=== PATIENT | female | born 1955 | race Caucasian/White ===

== ENCOUNTER 2016-03-13 20:11 | Observation (INO) | payer OTHER ==
[~2016-03-13] VITALS: Ht 162.6 cm; Wt 77.0 kg
[2016-03-13 20:28] VITALS: BP 186/108; PULSE 127; RESP 20; TEMP 98.7; O2SAT 95
[2016-03-13] MEDS ORDERED: SODIUM CHLOR 0.9% 1000 ML INJ 1,000 ML IV ONE ×2 (20:30)
[2016-03-13 20:39] VITALS: BP 160/98; PULSE 127; RESP 18; O2SAT 94
[2016-03-13] MEDS ORDERED: ASPIRIN 81 MG CHEW TAB PO ONE (20:45)
[2016-03-13] MEDS ORDERED: DEXAMETHASONE SOD PHOS 20 MG/5 ML VIAL IV PUSH ONE (20:45)
[2016-03-13 20:49] LABS: BASOPHIL # 0.1 TH/MM3 (0-0.2); BASOPHIL % 0.7 % (0.0-2.0); EOSINOPHIL # 0.2 TH/MM3 (0-0.4); EOSINOPHIL % 2.8 % (0.0-4.0); HEMATOCRIT 40.9 % (35.0-46.0); HEMO FLAGS DIFF FINAL; LYMPH % 21.6 % (9.0-44.0); LYMPHOCYTE # 1.7 TH/MM3 (1.0-4.8); MEAN CELL VOLUME 88.7 FL (80.0-100.0); MEAN CORPUSCULAR HEMOGLOBIN 29.2 PG (27.0-34.0); MEAN CORPUSCULAR HGB CONC 32.9 % (32.0-36.0); MONO % 8.6 % (0.0-8.0); NEUT % 66.3 % (16.0-70.0); PLATELET COUNT 297 TH/MM3 (150-450); RED BLOOD COUNT 4.61 MIL/MM3 (4.00-5.30); RED CELL DISTRIBUTION WIDTH 12.7 % (11.6-17.2); WHITE BLOOD COUNT 7.7 TH/MM3 (4.0-11.0)
[2016-03-13 20:59] LABS: CHLORIDE 104 MEQ/L (98-107); POTASSIUM 3.4 MEQ/L (3.5-5.1); SODIUM (NA) 140 MEQ/L (136-145)
[2016-03-13 21:03] LABS: ANION GAP 8 MEQ/L (5-15); BICARBONATE 28.4 MEQ/L (21.0-32.0); BLOOD UREA NITROGEN 9 MG/DL (7-18)
[2016-03-13 21:06] LABS: ALT (GPT) 14 U/L (10-53); AST (GOT) 15 U/L (15-37); GLOMERULAR FILTRATION RATE 84 ML/MIN (>89)
--- NOTE | 2016-03-13 21:07 | PD ---
HPI Chief Complaint: Chest Pain Time Seen by Provider: 20:23 Travel History International Travel<30 days: No Contact w/Intl Traveler<30days: No Traveled to known affect area: No History of Present Illness HPI Patient is a 60-year-old female with hx of hypertension, hyperlipidemia who presents to emergency room with multiple complaints. Patient reports that for the past week, she has not been feeling well. Patient reports that everyone in her house is sick, reports that she has had increased cough, increased congestion, reports that she has feels overall generalized weakness as well as myalgias. Reports that since yesterday, she has been having chest pain. Patient reports that chest pain is located in her mid sternum, reports that chest pain feels like a sharp stabbing pain which is intermittent in nature. Patient reports that sometimes when she has this pain, the pain radiates to her back. Reports that she is been feeling very short of breath with her chest pain , nothing makes pain better or worse. Patient reports that when she has these symptoms of chest pain, she can't remember how long her symptoms last. Reports that she has no chest pain at this time. Denies diaphoresis or nausea or vomiting with symptoms. Reports no history of coronary disease or NC in the past.. Denies any recent travels or trips. PFSH Past Medical History Hx Anticoagulant Therapy: Yes Cardiovascular Problems: Yes Chemotherapy: Yes Cerebrovascular Accident: Yes ?: Not Family History Family History: Negative Social History Alcohol Use: No Tobacco Use: No Substance Use: No Allergies-Medications (Allergen,Severity, Reaction): Coded Allergies: Contrast Media (Verified Allergy, Unknown, 03/13/16) Reported Meds & Prescriptions Reported Meds & Active Scripts Active Reported Pantoprazole (Pantoprazole Sodium) 40 Mg Tab 40 Mg PO DAILY Levocetirizine 5 Mg Tab 5 Mg PO DAILY Metoprolol Tartrate 50 Mg Tab 50 Mg PO BID Sertraline (Sertraline HCl) 100 Mg Tab 100 Mg PO DAILY Gabapentin 800 Mg Tab 800 Mg PO TID Verapamil (Verapamil HCl) 120 Mg Tab 120 Mg PO BID Clopidogrel (Clopidogrel Bisulfate) 75 Mg Tab 75 Mg PO DAILY Lisinopril 20 Mg Tab 20 Mg PO DAILY Hydrocodone-Acetaminophen 5-325 mg Tab 1 Tab PO Q6H PRN Review of Systems General / Constitutional: Positive: Fever, Chills Cardiovascular: Positive: Chest Pain or Discomfort, Palpitations, Tachycardia, No: Diaphoresis Respiratory: Positive: Cough, Shortness of Breath Gastrointestinal: No: Nausea, Vomiting, Abdominal Pain Musculoskeletal: Positive: Myalgias Neurologic: Positive: Weakness Physical Exam Narrative GENERAL: moderate distress SKIN: Warm and dry. HEAD: Atraumatic. Normocephalic. EYES: Pupils equal and round. No scleral icterus. No injection or drainage. ENT: No nasal bleeding or discharge. Mucous membranes pink and moist. Patient with increased nasal congestion NECK: Trachea midline. No JVD. CARDIOVASCULAR: Tachycardic. No murmur appreciated. RESPIRATORY: No accessory muscle use. Clear to auscultation. Breath sounds equal bilaterally. GASTROINTESTINAL: Abdomen soft, non-tender, nondistended. Hepatic and splenic margins not palpable. MUSCULOSKELETAL: No obvious deformities. No clubbing. No cyanosis. No edema. NEUROLOGICAL: Awake and alert. No obvious cranial nerve deficits. Motor grossly within normal limits. Normal speech. PSYCHIATRIC: Patient anxious and crying on exam Data Data Last Documented VS Vital Signs Date Time Temp Pulse Resp B/P Pulse Ox O2 Delivery O2 Flow Rate FiO2 03/13/16 23:41 121 18 161/103 96 Nasal Cannula 2 03/13/16 20:28 98.7 Orders Complete Blood Count With Diff (03/13/16 20:25) Comprehensive Metabolic Panel (03/13/16 20:25) Prothrombin Time / Inr (Pt) (03/13/16 20:25) Act Partial Throm Time (Ptt) (03/13/16 20:25) Lactic Acid Sepsis Protocol (03/13/16 20:25) Magnesium (Mg) (03/13/16 20:25) Lipase (03/13/16 20:25) Ckmb (Isoenzyme) Profile (03/13/16 20:25) Troponin I (03/13/16 20:25) Urinalysis - C+S If Indicated (03/13/16 20:25) Influenzae A/B Antigen (03/13/16 20:25) Blood Culture (03/13/16 20:25) B-Type Natriuretic Peptide (03/13/16 20:25) Sodium Chlor 0.9% 1000 Ml Inj (Ns 1000 M (03/13/16 20:30) Sodium Chlor 0.9% 1000 Ml Inj (Ns 1000 M (03/13/16 20:30) D-Dimer (03/13/16 20:30) Dexamethasone Inj (Decadron Inj) (03/13/16 20:45) Aspirin Chew (Aspirin Chew) (03/13/16 20:45) Chest, Single Ap (03/13/16 21:02) Lorazepam Inj (Ativan Inj) (03/13/16 21:30) Electrocardiogram (03/13/16 ) Ventilation & Perfusion Scan (03/13/16 ) Us Leg Venous Doppler Bilat (03/13/16 ) Ct Thorax/ Chest Wo Iv Contras (03/13/16 ) Potassium Cl 40 Meq/30 Ml Liq (Kcl 40 Me (03/13/16 22:15) Electrocardiogram (03/13/16 21:49) Ceftriaxone Inj (Rocephin Inj) (03/13/16 23:00) Azithromycin Inj (Zithromax Inj) (03/13/16 23:00) Urine Culture (03/13/16 22:20) Place In Observation (03/13/16 ) Vital Signs (Adult) Q4H (03/13/16 23:39) Activity Oob With Assistance (03/13/16 23:39) Infection Control Practitioner / Telemetry .CONTINUOUS (03/13/16 23:39) Diet Heart Healthy (03/14/16 Breakfast) Sodium Chloride 0.9% Flush (Ns Flush) (03/13/16 23:45) Sodium Chloride 0.9% Flush (Ns Flush) (03/14/16 09:00) Creatine Kinase (Cpk) (03/14/16 02:30) Creatine Kinase (Cpk) (03/14/16 08:30) Troponin I (03/14/16 02:30) Troponin I (03/14/16 08:30) Electrocardiogram (03/14/16 02:30) Electrocardiogram (03/14/16 08:30) Naloxone Inj (Narcan Inj) (03/13/16 23:45) Ceftriaxone Inj (Rocephin Inj) (03/14/16 09:00) Azithromycin (Zithromax) (03/14/16 09:00) Admit Order (Ed Use Only) (03/13/16 23:54) Labs Laboratory Tests Test 03/13/16 03/13/16 20:30 22:20 White Blood Count 7.7 TH/MM3 Red Blood Count 4.61 MIL/MM3 Hemoglobin 13.5 GM/DL Hematocrit 40.9 % Mean Corpuscular Volume 88.7 FL Mean Corpuscular Hemoglobin 29.2 PG Mean Corpuscular Hemoglobin 32.9 % Concent Red Cell Distribution Width 12.7 % Platelet Count 297 TH/MM3 Mean Platelet Volume 8.0 FL Neutrophils (%) (Auto) 66.3 % Lymphocytes (%) (Auto) 21.6 % Monocytes (%) (Auto) 8.6 % Eosinophils (%) (Auto) 2.8 % Basophils (%) (Auto) 0.7 % Neutrophils # (Auto) 5.0 TH/MM3 Lymphocytes # (Auto) 1.7 TH/MM3 Monocytes # (Auto) 0.7 TH/MM3 Eosinophils # (Auto) 0.2 TH/MM3 Basophils # (Auto) 0.1 TH/MM3 CBC Comment DIFF FINAL Differential Comment Prothrombin Time 10.5 SEC Prothromb Time International 1.0 RATIO Ratio Activated Partial 27.4 SEC Thromboplast Time D-Dimer Quantitative (PE/DVT) 0.92 MG/L FEU Sodium Level 140 MEQ/L Potassium Level 3.4 MEQ/L Chloride Level 104 MEQ/L Carbon Dioxide Level 28.4 MEQ/L Anion Gap 8 MEQ/L Blood Urea Nitrogen 9 MG/DL Creatinine 0.71 MG/DL Estimat Glomerular Filtration 84 ML/MIN Rate Random Glucose 102 MG/DL Lactic Acid Level 0.5 mmol/L Calcium Level 8.9 MG/DL Magnesium Level 2.0 MG/DL Total Bilirubin 0.3 MG/DL Aspartate Amino Transf 15 U/L (AST/SGOT) Alanine Aminotransferase 14 U/L (ALT/SGPT) Alkaline Phosphatase 61 U/L Total Creatine Kinase 54 U/L Troponin I LESS THAN 0.02 NG/ML B-Type Natriuretic Peptide 162 PG/ML Total Protein 7.3 GM/DL Albumin 3.6 GM/DL Lipase 129 U/L Urine Color STRAW Urine Turbidity CLEAR Urine pH 6.0 Urine Specific [place] 1.004 Urine Protein NEG mg/dL Urine Glucose (UA) NEG mg/dL Urine Ketones NEG mg/dL Urine Occult Blood NEG Urine Nitrite NEG Urine Bilirubin NEG Urine Leukocyte Esterase SMALL Urine WBC 3-5 /hpf Urine Squamous Epithelial 0-5 /hpf Cells Urine Bacteria MOD /hpf Microscopic Urinalysis Comment CULTURE INDICATED MDM Medical Decision Making Medical Screen Exam Complete: Yes Emergency Medical Condition: Yes Interpretation(s) EKG at 2019: Sinus tachycardia at 126 beats minute, QT/QTc 316/431, lbbb EKG at 2148: Sinus tachycardia at 118bpm, qt/qtc: 336/437, lbbb Vital Signs Date Time Temp Pulse Resp B/P Pulse Ox O2 Delivery O2 Flow Rate FiO2 03/13/16 20:39 127 18 160/98 94 Room Air 03/13/16 20:30 127 20 95 Room Air 03/13/16 20:28 98.7 127 20 186/108 95 Differential Diagnosis acs, arrhythmia, pneumonia, PE, aortic dissection, influenza, viral syndrome, sinusitis, anxiety reaction Narrative Course Patient is a 60-year-old female who presents to emergency room with multiple complaints. Patient reports that for the past week, she has had increased nonproductive cough, congestion, fevers or chills and myalgias. Patient reports that everyone at home is sick with similar symptoms. Reports that she has been having increased chest pain since yesterday. Reports pain as a "sharp and stabbing" pain that is substernal in nature and intermittently radiates to her back. Reports chest pain worse with taking deep breaths. Reports that she is currently chest pain free at this time. Upon arrival to the emergency room, patient was placed on patient monitor. EKG obtained, patient with sinus tachycardia with left bundle branch block. Patient with no. EKG compare Patient is tachycardic on evaluation in very anxious and crying on exam. , CBC , BMP, influenza, x-ray chest ordered to evaluation of symptoms. Plan to give patient IV fluids and monitor her. CBC: wbc: 7.7 hb.5 hct: 40.9 platelets: 297 lactic acid: 0.5 bmp: Sodium 140 Chloride 104 Potassium 3.4 Carbon dioxide 28.4 BUN 9 Creatinine 0.71 Troponin: Less than 0.02 Total CK 54 Influenza screen: Negative for influenza A or B 2114: patient reevaluated, patient with no chest pain at this time. Patient reports that she is feeling much better. Will continue to monitor patient. patient with positive d.dimer, pt reports allergy to IV dye, reports that IV dye causes her to have seizures VQ scan and doppler US of leg ordered for evaluation of possible PE as pt is tachy and c/o of sob with positive d.dimer 0: patient re-evaluated, pt comfortable at this time, reports no chest pain at this time chest xray: no acute process doppler us of legs: no evidence of dvt b/l Last Impressions Chest X-Ray 03/13/162 Signed Impressions: Service Date/Time: Sunday, March 13, 2016 21:17 - CONCLUSION: No acute disease. Yousif Correa MD Lower Extremity Ultrasound 03/13/16 0000 Signed Impressions: Service Date/Time: Sunday, March 13, 2016 21:55 - CONCLUSION: No DVT. Yousif Correa MD CT of chest without IV contrast shows that there is an increased density seen at the posterior mediolateral lower lungs bilaterally more prominent on the right. This increased parenchymal density at the posterior lung bases bilaterally. He secondary to dependent atelectasis although some degree of a could be consolidation which could have similar appearance as per radiologist. Given her symptoms of a nonproductive dry cough for tachycardia and fever and chills, will treat for possible pneumonia case reviewed with Dr Reis who accepts pt to service for obs VQ scan: low probability for PE Diagnosis Primary Impression: Chest pain Qualified Code: R07.9 - Chest pain, unspecified type Additional Impression: Pneumonia Qualified Code: J18.9 - Pneumonia of both lower lobes due to infectious organism Admitting Information Admitting Physician Requests: Observation Ary Holman DO Mar 13, 2016 21:07
[2016-03-13 21:08] LABS: TOTAL BILIRUBIN ADULT 0.3 MG/DL (0.2-1.0)
[2016-03-13 21:09] LABS: ALKALINE PHOSPHATASE 61 U/L (45-117)
[2016-03-13 21:10] LABS: CREATINE KINASE 54 U/L (26-192)
[2016-03-13] MEDS ORDERED: LEVOTAB PO (21:22)
[2016-03-13] MEDS ORDERED: VERA120T3 PO (21:22)
[2016-03-13] MEDS ORDERED: LISI-515 PO (21:22)
[2016-03-13] MEDS ORDERED: SERT-129 PO (21:22)
[2016-03-13] MEDS ORDERED: HYDR-3516 PO (21:22)
[2016-03-13] MEDS ORDERED: METO50TA PO (21:22)
[2016-03-13] MEDS ORDERED: GABA800T PO (21:22)
[2016-03-13] MEDS ORDERED: PANT40TA3 PO (21:22)
[2016-03-13] MEDS ORDERED: CLOP75TA PO (21:22)
[2016-03-13 21:23] LABS: APTT (PATIENT) 27.4 SEC (24.3-30.1)
[2016-03-13 21:24] LABS: PROTHROMBIN TIME - PATIENT 10.5 SEC (9.8-11.6)
[2016-03-13] MEDS ORDERED: LORazepam 2 MG/ML VIAL IV PUSH ONE (21:30)
[2016-03-13 21:46] VITALS: BP 145/92; PULSE 113; RESP 18; O2SAT 95
--- NOTE | 2016-03-13 21:53 | RADHPO ---
EXAM DATE/TIME: 03/13/2016 21:17 [facility] COMPARISON: No previous studies available for comparison. INDICATIONS : Chest pain for 2 days. MEDICAL HISTORY : None. SURGICAL HISTORY : None. ENCOUNTER: Initial ACUITY: 2 days PAIN SCORE: 5/10 LOCATION: Bilateral chest FINDINGS: A single view of the chest demonstrates the lungs to be symmetrically aerated without evidence of mas s, infiltrate or effusion. The cardiomediastinal contours are unremarkable. Osseous structures are intact. CONCLUSION: No acute disease. Yousif Correa MD on March 13, 2016 at 21:51 Board Certified Radiologist. This report was verified electronically.
[2016-03-13] MEDS ORDERED: POTASSIUM CL 40 MEQ/30 ML LIQ UDC PO ONE (22:15)
--- NOTE | 2016-03-13 22:16 | RADHPO ---
EXAM DATE/TIME: 03/13/2016 21:55 [facility] COMPARISON: No previous studies available for comparison. INDICATIONS : Bilateral leg pain and shortness of breath. MEDICAL HISTORY : Hypertension. Hyperlipidemia. Cerebrovascular accident. Anticoagulant therapy. Cancer. Chemotherapy . SURGICAL HISTORY : None. ENCOUNTER: Initial ACUITY: 1 week PAIN SCORE: 4/10 LOCATION: Bilateral legs. TECHNIQUE: Venous ultrasound of the left and right leg was performed from the inguinal ligament to the proximal calf. Real-time, color Doppler and spectral tracing, compression and augmentation techniques were us ed. FINDINGS: RIGHT LEG: There is normal compressibility of the deep venous system from the inguinal region to the proximal ca lf. No echogenic clot is seen in the lumen of the common femoral, femoral, popliteal, and posterior tibial veins. There is a normal response of the venous system to proximal and distal augmentation an d respiration. LEFT LEG: There is normal compressibility of the deep venous system from the inguinal region to the proximal ca lf. No echogenic clot is seen in the lumen of the common femoral, femoral, popliteal, and posterior tibial veins. There is a normal response of the venous system to proximal and distal augmentation an d respiration. CONCLUSION: No DVT. Yousif Correa MD on March 13, 2016 at 22:14 Board Certified Radiologist. This report was verified electronically.
[2016-03-13 22:32] LABS: BLOOD, URINE NEG (NEG); GLUCOSE,URINE NEG (NEG); KETONE, URINE NEG (NEG); NITRITE,URINE NEG (NEG)
[2016-03-13 22:41] VITALS: BP 146/99; PULSE 126; RESP 18; O2SAT 94
--- NOTE | 2016-03-13 22:46 | RADHPO ---
EXAM DATE/TIME: 03/13/2016 22:25 [facility] COMPARISON: No previous studies available for comparison. INDICATIONS : Short of breath with cough and medial chest pain. RADIATION DOSE: 10.36 CTDIvol (mGy) MEDICAL HISTORY : Hypertension. CVA. SURGICAL HISTORY : None. ENCOUNTER: Initial ACUITY: 1 day PAIN SCALE: 2/10 LOCATION: chest TECHNIQUE: Volumetric scanning of the chest was performed. Using automated exposure control and adjustment of t he mA and/or kV according to patient size, radiation dose was kept as low as reasonably achievable to obtain optimal diagnostic quality images. FINDINGS: LUNGS: There is increased density seen at the posterior medial lower lungs bilaterally being more prominent on the right. PLEURAE: There is no pleural thickening or pleural effusion. MEDIASTINUM: The heart and great vessels demonstrate no acute abnormality. There is no mediastinal or hilar lymph adenopathy. Coronary artery calcifications are present. AXILLAE: Within normal limits. No lymphadenopathy. MUSCULOSKELETAL: Within normal limits for patient age. MISCELLANEOUS: The visualized upper abdominal organs demonstrate no acute abnormality. There is a minimal hiatal her yaa present. CONCLUSION: 1. Increased parenchymal density at the posterior lung bases bilaterally being more prominent on the right. This configuration is most suggestive of dependent atelectasis although some degree of consoli dation could have a similar appearance. 2. Coronary artery calcifications. 3. Minimal hiatal hernia. Yousif Correa MD on March 13, 2016 at 22:42 Board Certified Radiologist. This report was verified electronically.
[2016-03-13 22:52] LABS: URINE COLOR STRAW (YELLW/STRAW)
[2016-03-13 22:53] LABS: BACTERIA, URINE MOD /hpf; COMMENT (UR) CULTURE INDICATED; CULTURE IF INDICATED CULTURE INDICATED; SQUAMOUS EPITHELIAL CELL URINE 0-5 /hpf (0-5)
[2016-03-13] MEDS ORDERED: AZITHROMYCIN INJ 500 MG in SODIUM CHLOR 0.9% 250 ML INJ 250 ML IV ONE (23:00)
[2016-03-13] MEDS ORDERED: cefTRIAXone INJ 1,000 MG in SODIUM CHLORIDE 0.9% INJ 100 ML IV ONE (23:00)
[2016-03-13 23:41] VITALS: BP 161/103; PULSE 121; RESP 18; O2SAT 96
[2016-03-13] MEDS ORDERED: SODIUM CHLORIDE 0.9% FLUSH 5 ML FLUSH FLUSH PRN (23:45)
[2016-03-13] MEDS ORDERED: NALOXONE HCL 0.4 MG/ML AMP IV PRN (23:45)
--- NOTE | 2016-03-13 23:52 | RADHPO ---
EXAM DATE/TIME: 03/13/2016 23:19 [facility] COMPARISON: CT THORAX W/O CONTRAST, March 13, 2016, 22:25. INDICATIONS : Cough congestion and weakness for the last week. Last 2 days has had chest pain radiating to the back with dyspnea. DOSE: 8.7 mCi Tc99m MAA IV 0.6 mCi Tc99m DTPA aerosol MEDICAL HISTORY : Hypercholesterolemia. Hypertension. Stroke. SURGICAL HISTORY : None. ENCOUNTER: Initial ACUITY: 2 days PAIN SCALE: 3/10 LOCATION: chest TECHNIQUE: Following five minutes of tidal breathing of DTPA aerosol, planar images of the lungs were performed in eight projections. The patient was then injected with MAA, and eight-view perfusion scan was perf ormed. FINDINGS: There is a homogeneous pattern of aerosol delivery to the periphery of both lungs. No focal ventilat ory defects are seen. The perfusion lung scan demonstrates a homogenous pattern of uptake in both lungs. No segmental or s ubsegmental defects are seen. CONCLUSION: Homogeneous perfusion. Study is low probability for pulmonary embolus. Yousif Hoffman MD on March 13, 2016 at 23:50 Board Certified Radiologist. This report was verified electronically.
[2016-03-14] VITALS (7 sets, daily range): BP systolic 113–134; BP diastolic 71–93; PULSE 89–113; RESP 14–18; TEMP 96–96.8; O2SAT 95–98
[2016-03-14] MEDS ORDERED: SODIUM CHLORIDE 0.9% FLUSH 5 ML FLUSH FLUSH SCH (09:00)
[2016-03-14] MEDS ORDERED: cefTRIAXone INJ 1,000 MG in SODIUM CHLORIDE 0.9% INJ 100 ML IV SCH (09:00)
[2016-03-14] MEDS ORDERED: AZITHROMYCIN 250 MG TAB PO SCH (09:00)
--- NOTE | 2016-03-14 14:17 | HHI.HP ---
[facility] No Primary Care Physician Admission Diagnosis chest pain Diagnoses: (1) Chest pain Diagnosis: Principal (2) Pneumonia Diagnosis: Principal (3) Hypertension Diagnosis: Secondary (4) Hyperlipidemia Diagnosis: Secondary (5) Obstructive sleep apnea Diagnosis: Secondary Chief Complaint: Shortness of breath, cough, congestion, chest discomfort Travel History International Travel<30 Days: No Contact w/Intl Traveler <30 Da: No Traveled to Known Affected Are: No History of Present Illness 60-year-old female who has known history of hypertension, hyperlipidemia, brain aneurysm status post coiling, history of CVA, degenerative arthritis, history of tobacco use, likely chronic obstructive pulmonary disease, obstructive sleep apnea who presented to hospital because of shortness of breath, dyspnea, cough, chest discomfort. Patient states the last week her grandkids were sick with upper respiratory infections and then she started developing symptoms 3-4 days ago with cough, congestion, fever, chills, shortness of breath, dyspnea. Patient states that she had a hard time catching her breath whenever she exerted herself. She indicates that Saturday she started developing pain in the middle part of her chest radiating into her back. She describes it as someone stabbing her with a knife to her chest. She states that this pain would happen whenever she tried to take a deep breath. She indicates that she did have some radiation and numbness into her left arm. She already has shortness of breath and dyspnea. She denies any nausea, vomiting, diaphoresis. Patient states that she has difficulty time taking a deep breath. The only time that she can take a full breath is whenever she uses her CPAP machine. Patient does have some underlying lung disorder, likely COPD because of history of smoking. Patient states that she is feeling much better at this time. No longer experiencing pain in her chest. She is asking if she is going to go home today, because she does not want to stay in the hospital any longer. Patient does not have a local physician. She has moved to [facility] from [place]. She states that she does not want to go back to her previous primary medical doctor. Review of Systems Constitutional: COMPLAINS OF: Fever, Chills, DENIES: Diaphoretic episodes, Fatigue, Weight gain, Weight loss, Dizziness, Change in appetite, Night Sweats Eyes: DENIES: Blurred vision, Diplopia, Eye inflammation, Eye pain, Vision loss , Double Vision Ears, nose, mouth, throat: DENIES: Vertigo, Nasal discharge, Throat pain, Ear Pain, Running Nose, Sinus Pain Respiratory: COMPLAINS OF: Cough, Shortness of breath, DENIES: Apneas, Snoring , Wheezing, Hemoptysis, Sputum production Cardiovascular: DENIES: Chest pain, Palpitations, Syncope, Dyspnea on Exertion , Lower Extremity Edema, Orthopnea Gastrointestinal: DENIES: Abdominal pain, Black stools, Bloody stools, Constipation, Diarrhea, Nausea, Vomiting, Difficulty Swallowing, Anorexia Neurologic: DENIES: Abnormal gait, Headache, Localized weakness, Paresthesias, Seizures, Speech Problems, Tremor, Poor Balance Past Family Social History Past Medical History Hypertension Hyperlipidemia History of brain aneurysm status post coiling History of CVA Obstructive sleep apnea History tobacco use, likely underlying COPD Anxiety, depression Gastroesophageal reflux Degenerative arthritis Past Surgical History Brain aneurysm coils Surgery for ruptured ovarian cyst Reported Medications Reported Meds & Active Scripts Active Reported Pantoprazole (Pantoprazole Sodium) 40 Mg Tab 40 Mg PO DAILY Levocetirizine 5 Mg Tab 5 Mg PO DAILY Metoprolol Tartrate 50 Mg Tab 50 Mg PO BID Sertraline (Sertraline HCl) 100 Mg Tab 100 Mg PO DAILY Gabapentin 800 Mg Tab 800 Mg PO TID Verapamil (Verapamil HCl) 120 Mg Tab 120 Mg PO BID Clopidogrel (Clopidogrel Bisulfate) 75 Mg Tab 75 Mg PO DAILY Lisinopril 20 Mg Tab 20 Mg PO DAILY Hydrocodone-Acetaminophen 5-325 mg Tab 1 Tab PO Q6H PRN Allergies: Coded Allergies: Contrast Media (Verified Allergy, Unknown, 03/13/16) Family History Reviewed and family history rather significant for cancer. Heart disease Social History Patient quit smoking 10 years ago, prior to that she smoked up to 3 pack a cigarettes a day since she was 14 years old. Patient denies any alcohol or illicit drugs Physical Exam Vital Signs Vital Signs Date Time Temp Pulse Resp B/P Pulse Ox O2 Delivery O2 Flow Rate FiO2 03/14/16 12:08 96.8 96 14 128/93 96 03/14/16 08:45 96.0 89 15 116/84 97 03/14/16 07:04 89 18 97 Nasal Cannula 2 03/14/16 06:21 107 18 113/71 97 Nasal Cannula 2 03/14/16 06:21 107 18 97 Nasal Cannula 2 03/14/16 04:52 102 18 95 Nasal Cannula 2 03/14/16 04:52 102 18 113/71 95 Nasal Cannula 2 03/14/16 02:42 111 18 98 Nasal Cannula 2 03/14/16 02:42 111 18 134/91 98 Nasal Cannula 2 03/14/16 00:39 113 18 98 Nasal Cannula 2 03/14/16 00:39 113 18 128/89 98 Nasal Cannula 2 03/13/16 23:41 121 18 161/103 96 Nasal Cannula 2 03/13/16 22:50 92 Nasal Cannula 2 03/13/16 22:41 126 18 94 Room Air 03/13/16 22:41 126 18 146/99 94 Room Air 03/13/16 21:46 113 18 145/92 95 Room Air 03/13/16 20:39 127 18 160/98 94 Room Air 03/13/16 20:30 127 20 95 Room Air 03/13/16 20:28 98.7 127 20 186/108 95 Physical Exam GENERAL: Well-developed, well-nourished, in no acute distress. alert and orientated HEENT: Head is normocephalic without any lesions or masses noted. Facial features are symmetric. Eyes: Pupils equal round reactive to light. Extraocular muscles are intact. Conjunctivae were clear. Oropharyngeal: Pharynx without any erythema edema. Tongue is midline without deviation. Buccal mucosa is moist without any masses or lesions NECK: Supple without any masses. Trachea midline no deviation. No JVD, no bruits are appreciated CARDIAC: Regular rhythm, regular rate. S1/S2 are heard. No murmurs gallops or rubs. LUNGS: Clear to auscultation bilaterally. No wheeze, rhonchi or rales. No use of accessory muscles on inspiration or expiration. ABDOMEN: Soft, nontender. Nondistended. Bowel sounds heard in all 4 quadrants. No organomegaly or masses. Negative rebound, negative guarding EXTREMITIES: No edema, pulses are equal bilaterally. No cyanosis or clubbing NEUROLOGY: Mood and affect appear appropriate. Cranial nerves II through XII grossly intact. Muscle strength 5/5 in upper and lower extremities bilaterally. Deep tendon reflexes are 2+ in upper and lower extremities bilaterally. Laboratory Laboratory Tests Test 03/13/16 03/13/16 03/14/16 03/14/16 20:30 22:20 02:12 08:25 White Blood Count 7.7 Red Blood Count 4.61 Hemoglobin 13.5 Hematocrit 40.9 Mean Corpuscular Volume 88.7 Mean Corpuscular Hemoglobin 29.2 Mean Corpuscular Hemoglobin 32.9 Concent Red Cell Distribution Width 12.7 Platelet Count 297 Mean Platelet Volume 8.0 Neutrophils (%) (Auto) 66.3 Lymphocytes (%) (Auto) 21.6 Monocytes (%) (Auto) 8.6 Eosinophils (%) (Auto) 2.8 Basophils (%) (Auto) 0.7 Neutrophils # (Auto) 5.0 Lymphocytes # (Auto) 1.7 Monocytes # (Auto) 0.7 Eosinophils # (Auto) 0.2 Basophils # (Auto) 0.1 CBC Comment DIFF FINAL Differential Comment Prothrombin Time 10.5 Prothromb Time International 1.0 Ratio Activated Partial 27.4 Thromboplast Time D-Dimer Quantitative (PE/DVT) 0.92 Sodium Level 140 Potassium Level 3.4 Chloride Level 104 Carbon Dioxide Level 28.4 Anion Gap 8 Blood Urea Nitrogen 9 Creatinine 0.71 Estimat Glomerular Filtration 84 Rate Random Glucose 102 Lactic Acid Level 0.5 Calcium Level 8.9 Magnesium Level 2.0 Total Bilirubin 0.3 Aspartate Amino Transf 15 (AST/SGOT) Alanine Aminotransferase 14 (ALT/SGPT) Alkaline Phosphatase 61 Total Creatine Kinase 54 48 42 Troponin I LESS THAN 0.02 0.03 0.02 B-Type Natriuretic Peptide 162 Total Protein 7.3 Albumin 3.6 Lipase 129 Urine Color STRAW Urine Turbidity CLEAR Urine pH 6.0 Urine Specific [place] 1.004 Urine Protein NEG Urine Glucose (UA) NEG Urine Ketones NEG Urine Occult Blood NEG Urine Nitrite NEG Urine Bilirubin NEG Urine Leukocyte Esterase SMALL Urine WBC 3-5 Urine Squamous Epithelial 0-5 Cells Urine Bacteria MOD Microscopic Urinalysis Comment CULTURE INDICATED Date/Time Procedure Status Source Growth 03/13/16 22:20 Urine Culture - Preliminary Resulted Urine Clean Catch RESULTS PENDING 03/13/16 20:42 Influenza Types A,B Antigen (ENMANUEL) - Final Complete Nasal Aspirate NEGATIVE FOR FLU A AND B ANTIGEN.... 03/13/16 20:35 Aerobic Blood Culture - Preliminary Resulted Blood Peripheral NO GROWTH IN 1 DAY 03/13/16 20:35 Anaerobic Blood Culture - Preliminary Resulted Blood Peripheral NO GROWTH IN 1 DAY Result Diagram: 03/13/16202903/13/162029 Imaging Last Impressions Chest X-Ray 03/13/162101 Signed Impressions: Service Date/Time: Sunday, March 13, 2016 21:17 - CONCLUSION: No acute disease. Yousif Correa MD Lung Scan-VQ Nuclear Medicine 03/13/16 0000 Signed Impressions: Service Date/Time: Sunday, March 13, 2016 23:19 - CONCLUSION: Homogeneous perfusion. Study is low probability for pulmonary embolus. Yousif Hoffman MD Lower Extremity Ultrasound 03/13/16 0000 Signed Impressions: Service Date/Time: Sunday, March 13, 2016 21:55 - CONCLUSION: No DVT. Yousif Correa MD Chest CT 03/13/16 0000 Signed Impressions: Service Date/Time: Sunday, March 13, 2016 22:25 - CONCLUSION: 1. Increased parenchymal density at the posterior lung bases bilaterally being more prominent on the right. This configuration is most suggestive of dependent atelectasis although some degree of consolidation could have a similar appearance. 2. Coronary artery calcifications. 3. Minimal hiatal hernia. Yousif Correa MD Assessment and Plan Assessment and Plan Chest pain, likely pleuritic in nature Patient ruled out for any acute coronary event with serial cardiac enzymes which were reviewed by myself and negative. Serial EKGs which reviewed by myself which does show sinus tachycardia left bundle branch block, without any changes Continue pain control Bilateral consolidations and dependent atelectasis by CT scan Continue antibiotic consisted for community-acquired pneumonia with Rocephin and Zithromax Counseled patient on incentive spirometry, requested respiratory therapist teach patient how to use it Influenza testing was negative Hypertension, hyperlipidemia Home medications will be continued History of CVA Plavix will be continued DVT prevention Low risk, early ambulation Written by John Hudson PA-C, acting as scribe for Dr. Alvarado on 03/14/16 at 1530. The documentation accurately reflects the work and decisions performed face-to- face by Dr. Alvarado on 03/14/16 at 1530. Discharge disposition Discharge home in stable condition Activity: Ad el. Diet: Healthy heart diet Medications per medication reconciliation Follow-up primary medical doctor in one week Problem Qualifiers (1) Chest pain: Qualified Code: R07.9 - Chest pain, unspecified type (2) Pneumonia: Qualified Code: J18.9 - Pneumonia of both lower lobes due to infectious organism (3) Hypertension: Qualified Code: I15.9 - Secondary hypertension (4) Hyperlipidemia: Qualified Code: E78.5 - Hyperlipidemia, unspecified hyperlipidemia type John Hudson Mar 14, 2016 14:17
--- NOTE | 2016-03-14 14:18 | HHI.DCPOC ---
Discharge Care Plan Diagnosis: (1) Chest pain (2) Atelectasis (3) Pneumonia Goals to Promote Your Health * To prevent worsening of your condition and complications * To maintain your health at the optimal level Directions to Meet Your Goals Take your medications as prescribed Follow your dietary instruction Follow activity as directed Keep your appointments as scheduled Take your immunizations and boosters as scheduled If your symptoms worsen call your PCP, if no PCP go to Urgent Care Center or Emergency Room Smoking is Dangerous to Your Health. Avoid second hand smoke Call the 24-hour hour crisis hotline for domestic abuse at John Hudson Mar 14, 2016 14:18
[2016-03-14] MEDS ORDERED: LEVA750T PO (14:20)
[2016-03-14] MEDS ORDERED: PRED5PAK PO (14:20)
[2016-03-14] MEDS ORDERED: VENTAER INH (14:20)
[2016-03-14] MEDS ORDERED: RESP: ALBUTEROL 2.5 MG/IPRATROPIUM 0.5 MG NEB (PRN) NEB (14:30)
[2016-03-14] MEDS ORDERED: RESP: ALBUTEROL 2.5 MG/IPRATROPIUM 0.5 MG NEB (SCH) NEB (16:00)
--- NOTE | 2016-03-14 16:06 | EKG ---
Date Performed: 03/14/2016 Time Performed: 03:00:18 PTAGE: 60 years EKG: Sinus tachycardia with 1st degree A-V block Left bundle branch block Compared to prior trac ing no significant change Abnormal ECG PREVIOUS TRACING : 03/13/2016 21.49 DOCTOR: Harshad Quinones Interpretating Date/Time 03/14/2016 16:01:18
--- NOTE | 2016-03-14 16:06 | EKG ---
Date Performed: 03/13/2016 Time Performed: 20:19:44 PTAGE: 60 years EKG: Sinus tachycardia Left bundle branch block Compared to prior tracing no significant change Abnormal ECG NO PREVIOUS TRACING DOCTOR: Harshad Quinones Interpretating Date/Time 03/14/2016 16:01:10
--- NOTE | 2016-03-14 16:06 | EKG ---
Date Performed: 03/13/2016 Time Performed: 21:49:04 PTAGE: 60 years EKG: Sinus tachycardia with borderline 1st degree A-V block Left bundle branch block Compared to prior tracing no significant change Abnormal ECG PREVIOUS TRACING : 03/13/2016 20.19 DOCTOR: Harshad Quinones Interpretating Date/Time 03/14/2016 16:01:26
--- NOTE | 2016-03-16 07:14 | EKG ---
Date Performed: 03/14/2016 Time Performed: 08:31:34 PTAGE: 60 years EKG: Sinus rhythm . Left bundle branch block Abnormal ECG PREVIOUS TRACING : 03/14/2016 03.00 Compared to prior tracing no significant change DOCTOR: Lawson Gramajo Interpretating Date/Time 03/16/2016 07:11:18
== END 2016-03-14 17:20 | disposition home or self-care (01) ==
LOC: PHED 20:11 → PHEDA 23:55 → PHEDH 03-14 03:55 → PH3B 03-14 08:06
PROVIDERS: ADMIT Family Medicine; ATTEND Family Medicine
DX: J18.9 Pneumonia, unspecified organism (principal); B96.20 Unspecified Escherichia coli [E. coli] as the cause of diseases classified elsewhere; R09.89 Other specified symptoms and signs involving the circulatory and respiratory systems; I10 Essential (primary) hypertension; E78.5 Hyperlipidemia, unspecified; I44.7 Left bundle-branch block, unspecified; R00.0 Tachycardia, unspecified; G47.33 Obstructive sleep apnea (adult) (pediatric); F32.9 Major depressive disorder, single episode, unspecified; F41.9 Anxiety disorder, unspecified; K21.9 Gastro-esophageal reflux disease without esophagitis; I25.10 Atherosclerotic heart disease of native coronary artery without angina pectoris; Z91.041 Radiographic dye allergy status; Z86.73 Personal history of transient ischemic attack (TIA), and cerebral infarction without residual deficits; Z87.891 Personal history of nicotine dependence; Z79.01 Long term (current) use of anticoagulants
CPT/HCPCS: 71010; 71250; 78582; 80053; 81001; 82550; 83605; 83690; 83735; 83880; 84484; 85025; 85379; 85610; 85730; 87040; 87077; 87086; 87186; 87804; 93005; 93970; 94150; 94664; 96361; 96374; 96375; 99285; A9540; A9567; G0378; J0456; J0696; J1100; J2060; J7030; J7050

== ENCOUNTER 2016-12-07 23:34 | Observation (INO) | payer OTHER ==
[~2016-12-07] VITALS: Ht 162.6 cm; Wt 80.5 kg
[~2016-12-07 23:34] MED LIST: CLOP75TA PO; GABA800T PO; HYDR-3516 PO; LEVA750T PO; LEVOTAB PO; LISI-515 PO; METO50TA PO; PANT40TA3 PO; PRED5PAK PO; SERT-129 PO; VENTAER INH; VERA120T3 PO
[2016-12-07 23:40] VITALS: BP 143/93; PULSE 117; RESP 17; TEMP 98.4; O2SAT 96
[2016-12-07 23:56] VITALS: BP 143/93; PULSE 108; RESP 17; TEMP 98.5; O2SAT 94
[2016-12-08] MEDS ORDERED: SODIUM CHLORID 0.9% 500 ML INJ 500 ML IV ONE
[2016-12-08] MEDS ORDERED: ASPIRIN 81 MG CHEW TAB PO ONE
[2016-12-08] MEDS ORDERED: SODIUM CHLORIDE 0.9% FLUSH 10 ML FLUSH IVF PRN
[2016-12-08] MEDS: RESP: ALBUTEROL 2.5 MG/IPRATROPIUM 0.5 MG NEB (SCH) INH (00:09)
[2016-12-08 00:10] VITALS: O2SAT 96
--- NOTE | 2016-12-08 00:14 | RADRPT ---
EXAM DATE/TIME: 12/08/2016 00:06 [facility] COMPARISON: No previous studies available for comparison. INDICATIONS : Chest pain. MEDICAL HISTORY : Hypertension. CVA SURGICAL HISTORY : None. ENCOUNTER: Initial ACUITY: 1 day PAIN SCORE: 7/10 LOCATION: Bilateral chest FINDINGS: A single view of the chest demonstrates the lungs to be symmetrically aerated without evidence of mas s, infiltrate or effusion. The cardiomediastinal contours are unremarkable. Osseous structures are intact. CONCLUSION: No evidence of acute cardiopulmonary disease. Yousif Hoffman MD on December 08, 2016 at 0:13 Board Certified Radiologist. This report was verified electronically.
[2016-12-08 00:20] LABS: BASOPHIL # 0.1 TH/MM3 (0-0.2); BASOPHIL % 0.8 % (0.0-2.0); HEMATOCRIT 43.7 % (35.0-46.0); HEMOGLOBIN 13.7 GM/DL (11.6-15.3); LYMPH % 11.5 % (9.0-44.0); LYMPHOCYTE # 1.3 TH/MM3 (1.0-4.8); MEAN CELL VOLUME 85.5 FL (80.0-100.0); MEAN CORPUSCULAR HEMOGLOBIN 26.7 PG (27.0-34.0); MEAN CORPUSCULAR HGB CONC 31.2 % (32.0-36.0); MEAN PLATELET VOLUME 8.4 FL (7.0-11.0); MONO % 2.1 % (0.0-8.0); MONOCYTE # 0.2 TH/MM3 (0-0.9); NEUT % 85.6 % (16.0-70.0); PLATELET COUNT 343 TH/MM3 (150-450); RED BLOOD COUNT 5.11 MIL/MM3 (4.00-5.30); RED CELL DISTRIBUTION WIDTH 13.6 % (11.6-17.2); WHITE BLOOD COUNT 11.6 TH/MM3 (4.0-11.0)
--- NOTE | 2016-12-08 00:23 | PD ---
HPI Chief Complaint: Chest Pain Time Seen by Provider: 23:50 Travel History International Travel<30 days: No Contact w/Intl Traveler<30days: No Traveled to known affect area: No History of Present Illness HPI Patient is a 60-year-old female with history of hypertension, hyperlipidemia, COPD, presents to emergency room with complaints of chest pain. Patient reports that she has been having chest pain since this 10:30 PM tonight. Patient reports the chest pain began as she was walking into her home tonight. Patient reports that chest pain is sharp and stabbing in nature, reports that it does radiate down her left arm. Patient reports that she does see Dr. Vazquez in the office for her chest pain. Denies history of cardiac stents or CABG. Patient reports that she did take one similar nitroglycerin prior to coming to the emergency room, patient reports that she has complete resolution of her chest pain at this time. Patient also reports that she has had an upper respiratory infection for the past week, reports that she currently is on steroids as well as on a Z-Edy PFS Past Medical History Hx Anticoagulant Therapy: Yes (ASA) Arthritis: Yes Autoimmune Disease: No Anxiety: Yes Depression: Yes Cancer: Yes (skin cancer removed on leg ) Cardiovascular Problems: Yes (NH, HTN) High Cholesterol: Yes Chemotherapy: No Chest Pain: Yes Diabetes: No Diminished Hearing: No Endocrine: No Gastrointestinal Disorders: Yes GERD: Yes Genitourinary: No Hypertension: Yes Immune Disorder: No Musculoskeletal: Yes Neurologic: Yes Psychiatric: Yes Reproductive: No Respiratory: Yes (SLEEP APNEA) Immunizations Current: Yes Radiation Therapy: No Sleep Apnea: Yes Tetanus Vaccination: < 5 Years Influenza Vaccination: No ?: Not LMP: 2000 Menopausal: Yes Past Surgical History Gynecologic Surgery: Yes (csections x1 ) Neurologic Surgery: Yes (aneurysm 2016- brain coils ) Other Surgery: Yes Social History Alcohol Use: No Tobacco Use: No (QUIT 10+ YEARS AGO) Substance Use: No Allergies-Medications (Allergen,Severity, Reaction): Coded Allergies: diatrizoate meglumine (Unverified Allergy, Unknown, 12/08/16) gadobenic acid (Unverified Allergy, Unknown, 12/08/16) gadodiamide (Unverified Allergy, Unknown, 12/08/16) gadoteridol (Unverified Allergy, Unknown, 12/08/16) iodixanol (Unverified Allergy, Unknown, 12/08/16) iohexol (Unverified Allergy, Unknown, 12/08/16) Reported Meds & Prescriptions Reported Meds & Active Scripts Active Ventolin Hfa 18 GM Inh (Albuterol Sulfate) 90 Mcg/Act Aer 2 Puff INH Q4-6H PRN Prednisone (21) 5 mg tab Dose Pack (Prednisone) 5 Mg Dspk 5 Mg PO DIRECTED Reported Nitroglycerin SL (Nitroglycerin) 0.4 Mg Subl 0.4 Mg SL DIRECTED PRN ONE TABLET UNDER THE TONGUE NEEDED FOR CHEST PAIN, MAY REPEAT EVERY FIVE MINUTES FOR A TOTAL OF 3 DOSES OR CALL 911 IF NO RELIEF Xanax (Alprazolam) 0.25 Mg Tab 0.25 Mg PO Q6H PRN Acetaminophen Pm Caplet (Acetaminophen/Diphenhydramine) 500 Mg-25 Mg Tablet Vitamin D3 (Cholecalciferol) 5,000 Unit Cap 5,000 Units PO DAILY Ecotrin Low Strength (Aspirin) 81 Mg Tabdr 81 Mg PO DAILY Atorvastatin (Atorvastatin Calcium) 80 Mg Tab 80 Mg PO HS Amlodipine (Amlodipine Besylate) 2.5 Mg Tab 2.5 Mg PO DAILY Pantoprazole (Pantoprazole Sodium) 40 Mg Tab 40 Mg PO DAILY Levocetirizine 5 Mg Tab 5 Mg PO DAILY Metoprolol Tartrate 50 Mg Tab 50 Mg PO BID Sertraline (Sertraline HCl) 100 Mg Tab 100 Mg PO DAILY Gabapentin 800 Mg Tab 800 Mg PO TID Clopidogrel (Clopidogrel Bisulfate) 75 Mg Tab 75 Mg PO DAILY Lisinopril 20 Mg Tab 20 Mg PO DAILY Hydrocodone-Acetaminophen 5-325 mg Tab 1 Tab PO Q6H PRN Review of Systems General / Constitutional: No: Fever Eyes: No: Visual changes HENT: No: Headaches Cardiovascular: Positive: Chest Pain or Discomfort Respiratory: Positive: Cough, Shortness of Breath, Wheezing Gastrointestinal: No: Abdominal Pain Genitourinary: No: Dysuria Musculoskeletal: No: Pain Skin: No Rash Neurologic: No: Weakness Psychiatric: No: Depression Endocrine: No: Polydipsia Hematologic/Lymphatic: No: Easy Bruising Physical Exam Narrative GENERAL: Mild distress SKIN: Focused skin assessment warm/dry. HEAD: Atraumatic. Normocephalic. EYES: Pupils equal and round. No scleral icterus. No injection or drainage. ENT: No nasal bleeding or discharge. Mucous membranes pink and moist. NECK: Trachea midline. No JVD. CARDIOVASCULAR: Tachycardic. No murmur appreciated. RESPIRATORY: No accessory muscle use. Scattered wheezing on exam. Breath sounds equal bilaterally. GASTROINTESTINAL: Abdomen soft, non-tender, nondistended. Hepatic and splenic margins not palpable. MUSCULOSKELETAL: No obvious deformities. No clubbing. No cyanosis. No edema. NEUROLOGICAL: Awake and alert. No obvious cranial nerve deficits. Motor grossly within normal limits. Normal speech. PSYCHIATRIC: Appropriate mood and affect; insight and judgment normal. Data Data Last Documented VS Vital Signs Date Time Temp Pulse Resp B/P (MAP) Pulse Ox O2 Delivery O2 Flow Rate FiO2 12/08/16 00:10 18 96 Room Air 12/07/16 23:56 98.5 108 143/93 (110) Orders Orders B-Type Natriuretic Peptide (12/07/16 23:53) Ckmb (Isoenzyme) Profile (12/07/16 23:53) Complete Blood Count With Diff (12/07/16 23:53) Comprehensive Metabolic Panel (12/07/16 23:53) Magnesium (Mg) (12/07/16 23:53) Prothrombin Time / Inr (Pt) (12/07/16 23:53) Act Partial Throm Time (Ptt) (12/07/16 23:53) Troponin I (12/07/16 23:53) Lipase (12/07/16 23:53) Chest, Single Ap (12/07/16 23:53) Ecg Monitoring (12/07/16 23:53) Iv Access Insert/Monitor (12/07/16 23:53) Oximetry (12/07/16 23:53) Aspirin Chew (Aspirin Chew) (12/08/16 00:00) Sodium Chloride 0.9% Flush (Ns Flush) (12/08/16 00:00) Nitroglycerin Sl (Nitrostat Sl) (12/08/16 00:00) Sodium Chlorid 0.9% 500 Ml Inj (Ns 500 M (12/08/16 00:00) Albuterol-Ipratropium Neb (Duoneb Neb) (12/08/16 00:00) Admit Order (Ed Use Only) (12/08/16 01:07) Electrocardiogram (12/08/16 ) Labs Laboratory Tests Test 12/08/16 00:00 White Blood Count 11.6 TH/MM3 Red Blood Count 5.11 MIL/MM3 Hemoglobin 13.7 GM/DL Hematocrit 43.7 % Mean Corpuscular Volume 85.5 FL Mean Corpuscular Hemoglobin 26.7 PG Mean Corpuscular Hemoglobin Concent 31.2 % Red Cell Distribution Width 13.6 % Platelet Count 343 TH/MM3 Mean Platelet Volume 8.4 FL Neutrophils (%) (Auto) 85.6 % Lymphocytes (%) (Auto) 11.5 % Monocytes (%) (Auto) 2.1 % Eosinophils (%) (Auto) 0.0 % Basophils (%) (Auto) 0.8 % Neutrophils # (Auto) 10.0 TH/MM3 Lymphocytes # (Auto) 1.3 TH/MM3 Monocytes # (Auto) 0.2 TH/MM3 Eosinophils # (Auto) 0.0 TH/MM3 Basophils # (Auto) 0.1 TH/MM3 CBC Comment DIFF FINAL Differential Comment Prothrombin Time 10.7 SEC Prothromb Time International Ratio 1.0 RATIO Activated Partial Thromboplast Time 24.7 SEC Blood Urea Nitrogen 19 MG/DL Creatinine 1.10 MG/DL Random Glucose 163 MG/DL Total Protein 7.2 GM/DL Albumin 3.5 GM/DL Calcium Level 9.4 MG/DL Magnesium Level 1.7 MG/DL Alkaline Phosphatase 69 U/L Aspartate Amino Transf (AST/SGOT) 12 U/L Alanine Aminotransferase (ALT/SGPT) 15 U/L Total Bilirubin 0.2 MG/DL Sodium Level 135 MEQ/L Potassium Level 3.7 MEQ/L Chloride Level 102 MEQ/L Carbon Dioxide Level 22.8 MEQ/L Anion Gap 10 MEQ/L Estimat Glomerular Filtration Rate 50 ML/MIN Total Creatine Kinase 52 U/L Troponin I LESS THAN 0.02 NG/ML B-Type Natriuretic Peptide 53 PG/ML Lipase 92 U/L [facility] Medical Decision Making Medical Screen Exam Complete: Yes Emergency Medical Condition: Yes Medical Record Reviewed: Yes Interpretation(s) EKG at 2339: sinus tach at 114bpm, qt/qtc: 358/425, lvh, ekg similar to previous ekgs Vital Signs Date Time Temp Pulse Resp B/P (MAP) Pulse Ox O2 Delivery O2 Flow Rate FiO2 12/08/16 00:10 18 96 Room Air 12/07/16 23:56 98.5 108 17 143/93 (110) 94 Nasal Cannula 12/07/16 23:40 98.4 117 17 143/93 (110) 96 Differential Diagnosis Differential includes ACS, arrhythmia, pneumonia, COPD exacerbation, electrolyte abnormality Narrative Course Patient was placed on a cardiac exercise physiologist upon arrival to the emergency room. EKG was obtained. X-ray of the chest was ordered, CBC, CMP, CE's ordered. Patient did have a wheezing on exam, neb treatments ordered for patient. Patient has complete resolution of chest pain at this time, will administer aspirin. Plan to monitor on cardiac exercise physiologist Vital Signs Date Time Temp Pulse Resp B/P (MAP) Pulse Ox O2 Delivery O2 Flow Rate FiO2 12/08/16 00:10 18 96 Room Air 12/07/16 23:56 98.5 108 17 143/93 (110) 94 Nasal Cannula 12/07/16 23:40 98.4 117 17 143/93 (110) 96 Laboratory Tests Test 12/08/16 00:00 White Blood Count 11.6 TH/MM3 (4.0-11.0) Red Blood Count 5.11 MIL/MM3 (4.00-5.30) Hemoglobin 13.7 GM/DL (11.6-15.3) Hematocrit 43.7 % (35.0-46.0) Mean Corpuscular Volume 85.5 FL (80.0-100.0) Mean Corpuscular Hemoglobin 26.7 PG (27.0-34.0) Mean Corpuscular Hemoglobin Concent 31.2 % (32.0-36.0) Red Cell Distribution Width 13.6 % (11.6-17.2) Platelet Count 343 TH/MM3 (150-450) Mean Platelet Volume 8.4 FL (7.0-11.0) Neutrophils (%) (Auto) 85.6 % (16.0-70.0) Lymphocytes (%) (Auto) 11.5 % (9.0-44.0) Monocytes (%) (Auto) 2.1 % (0.0-8.0) Eosinophils (%) (Auto) 0.0 % (0.0-4.0) Basophils (%) (Auto) 0.8 % (0.0-2.0) Neutrophils # (Auto) 10.0 TH/MM3 (1.8-7.7) Lymphocytes # (Auto) 1.3 TH/MM3 (1.0-4.8) Monocytes # (Auto) 0.2 TH/MM3 (0-0.9) Eosinophils # (Auto) 0.0 TH/MM3 (0-0.4) Basophils # (Auto) 0.1 TH/MM3 (0-0.2) CBC Comment DIFF FINAL Differential Comment Prothrombin Time 10.7 SEC (9.8-11.6) Prothromb Time International Ratio 1.0 RATIO Activated Partial Thromboplast Time 24.7 SEC (24.3-30.1) Blood Urea Nitrogen 19 MG/DL (7-18) Creatinine 1.10 MG/DL (0.50-1.00) Random Glucose 163 MG/DL (74-106) Total Protein 7.2 GM/DL (6.4-8.2) Albumin 3.5 GM/DL (3.4-5.0) Calcium Level 9.4 MG/DL (8.5-10.1) Magnesium Level 1.7 MG/DL (1.5-2.5) Alkaline Phosphatase 69 U/L (45-117) Aspartate Amino Transf (AST/SGOT) 12 U/L (15-37) Alanine Aminotransferase (ALT/SGPT) 15 U/L (10-53) Total Bilirubin 0.2 MG/DL (0.2-1.0) Sodium Level 135 MEQ/L (136-145) Potassium Level 3.7 MEQ/L (3.5-5.1) Chloride Level 102 MEQ/L (98-107) Carbon Dioxide Level 22.8 MEQ/L (21.0-32.0) Anion Gap 10 MEQ/L (5-15) Estimat Glomerular Filtration Rate 50 ML/MIN (>89) Total Creatine Kinase 52 U/L (26-192) Troponin I LESS THAN 0.02 NG/ML B-Type Natriuretic Peptide 53 PG/ML (0-100) Lipase 92 U/L (73-393) Last Impressions Chest X-Ray 12/07/16 3429 Signed Impressions: Service Date/Time: Thursday, December 08, 2016 00:06 - CONCLUSION: No evidence of acute cardiopulmonary disease. Yousif Hoffman MD Patient cp free after 1 sl nitro I reviewed all labs and studies with patient in detail. Plan to observe patient in chest pain unit Case reviewed with Dr. Armenta who accepts pt to service Diagnosis Primary Impression: Chest pain Admitting Information Admitting Physician Requests: Observation Ary Holman DO Dec 08, 2016 00:23
[2016-12-08] MEDS ORDERED: ASPI-147 PO (00:29)
[2016-12-08] MEDS ORDERED: CHOL5000 PO (00:29)
[2016-12-08] MEDS ORDERED: ACET25TA2 (00:29)
[2016-12-08] MEDS ORDERED: AMLO2.5T PO (00:29)
[2016-12-08] MEDS ORDERED: ATOR1TAB18 PO (00:29)
[2016-12-08] MEDS ORDERED: NITR1SUB3 SL (00:29)
[2016-12-08] MEDS ORDERED: ALPR.25 PO (00:29)
[2016-12-08 00:31] LABS: CHLORIDE 102 MEQ/L (98-107); SODIUM (NA) 135 MEQ/L (136-145)
[2016-12-08] MEDS: NITROGLYCERIN 0.4 MG SL 25 TABS/BTL SL SCH ×3 (00:31→02:52)
[2016-12-08 00:35] LABS: CALCIUM 9.4 MG/DL (8.5-10.1)
[2016-12-08 00:36] LABS: ALBUMIN 3.5 GM/DL (3.4-5.0); BICARBONATE 22.8 MEQ/L (21.0-32.0); BLOOD UREA NITROGEN 19 MG/DL (7-18); GLUCOSE,RANDOM 163 MG/DL (74-106); LIPASE 92 U/L (73-393); MAGNESIUM 1.7 MG/DL (1.5-2.5)
[2016-12-08 00:37] LABS: PROTHROMBIN TIME - PATIENT 10.7 SEC (9.8-11.6)
[2016-12-08 00:38] LABS: ALT (GPT) 15 U/L (10-53)
[2016-12-08 00:39] LABS: AST (GOT) 12 U/L (15-37); GLOMERULAR FILTRATION RATE 50 ML/MIN (>89)
[2016-12-08 00:40] LABS: TOTAL BILIRUBIN ADULT 0.2 MG/DL (0.2-1.0); TOTAL PROTEIN 7.2 GM/DL (6.4-8.2)
[2016-12-08 00:41] LABS: ALKALINE PHOSPHATASE 69 U/L (45-117)
[2016-12-08 00:44] LABS: TROPONIN I LESS THAN 0.02 NG/ML (0.02-0.05)
[2016-12-08] MEDS ORDERED: REGADENOSON INJ 0.4 MG/5 ML SYR IV ONE (01:09)
[2016-12-08] MEDS ORDERED: ALPRAZolam 0.25 MG TAB PO PRN (01:15)
[2016-12-08] MEDS ORDERED: LORazepam 2 MG/ML VIAL IV PUSH ONE (01:15)
[2016-12-08] MEDS ORDERED: NITROGLYCERIN 0.4 MG SL 25 TABS/BTL SL PRN (01:15)
[2016-12-08] MEDS ORDERED: SODIUM CHLORIDE 0.9% FLUSH 10 ML FLUSH IV FLUSH PRN (01:15)
[2016-12-08] MEDS ORDERED: METOPROLOL TARTRATE 25 MG TAB PO ONE (01:15)
[2016-12-08 01:24] VITALS: BP 122/96; PULSE 116; RESP 16; O2SAT 2
[2016-12-08 02:30] VITALS: BP_SYST 122; BP_SYST 157; BP_DIAS 94; BP_DIAS 96; PULSE 100; PULSE 102; RESP 20; TEMP 97.1; TEMP 98.2; O2SAT 96
[2016-12-08 03:41] LABS: TROPONIN I 0.03 NG/ML (0.02-0.05)
[2016-12-08] MEDS ORDERED: RESP: IPRATROPIUM 0.5 MG/2.5 ML NEB NEB SCH ×2 (04:00→14:00)
[2016-12-08 04:28] VITALS: RESP 20; O2SAT 96
[2016-12-08 07:31] LABS: TROPONIN I 0.02 NG/ML (0.02-0.05)
[2016-12-08] MEDS ORDERED: PILL SPLITTER OTHER PRN (07:45)
[2016-12-08 08:00] VITALS: BP 168/79; PULSE 94; RESP 20; TEMP 97.9; O2SAT 94
[2016-12-08 08:29] LABS: CALCIUM 9.3 MG/DL (8.5-10.1)
[2016-12-08 08:33] LABS: CREATININE 0.84 MG/DL (0.50-1.00)
[2016-12-08 08:35] LABS: BICARBONATE 25.8 MEQ/L (21.0-32.0)
[2016-12-08] MEDS ORDERED: ASPIRIN EC 81 MG TABEC PO SCH (09:00)
[2016-12-08] MEDS ORDERED: GABAPENTIN 300 MG CAP PO SCH (09:00)
[2016-12-08] MEDS ORDERED: LISINOPRIL 20 MG TAB PO SCH (09:00)
[2016-12-08] MEDS ORDERED: SERTRALINE HCL 100 MG TAB PO SCH (09:00)
[2016-12-08] MEDS ORDERED: SODIUM CHLORIDE 0.9% FLUSH 10 ML FLUSH IV FLUSH SCH (09:00)
[2016-12-08] MEDS ORDERED: PANTOPRAZOLE SOD 40 MG DELAYED RELEASE TAB PO SCH (09:00)
[2016-12-08] MEDS ORDERED: METOPROLOL TARTRATE 50 MG TAB PO SCH (09:00)
[2016-12-08] MEDS ORDERED: amLODIPine BESYLATE 5 MG TAB PO SCH (09:00)
[2016-12-08] MEDS ORDERED: CLOPIDOGREL 75 MG TAB PO SCH (09:00)
[2016-12-08] MEDS ORDERED: GABAPENTIN 400 MG CAP PO SCH (09:00)
--- NOTE | 2016-12-08 09:20 | HHI.HP ---
[facility] STEPHANE Neri Admission Diagnosis Chest pain Diagnoses: (1) Chest pain Diagnosis: Principal Chief Complaint: Chest pain Travel History International Travel<30 Days: No Contact w/Intl Traveler <30 Da: No Traveled to Known Affected Are: No History of Present Illness Written by John Hudson, acting as scribe for Dr. Zaidi on 12/08/16 at 09 :10. 60-year-old female who has known history of hypertension, hyperlipidemia, history myocardial infarction, brain aneurysm status post coiling, history of CVA, degenerative arthritis, history of tobacco use, likely chronic obstructive pulmonary disease, obstructive sleep apnea who presented to hospital because of chest discomfort. Patient states that her discomfort started last night as she was coming home from [facility]. She walked in the house and went up the stairs and at that time she started developing shortness breath and a sharp stabbing type pain in the left anterior chest which she ranked 10/10 on a pain scale with associated flushing. Denied any radiation of pain to neck, back, shoulder, arm, denied any nausea, vomiting. The patient laid down and put on her CPAP to see if that would help, however it did not. She been told by her hanger off Dr. Vazquez that if she develops this type of pain she should take a nitroglycerin and if it does not help she should go to the emergency department. The patient did take the nitroglycerin without any relief so she called her neighbor to bring her to the emergency department. Patient indicates that she was still experiencing pain when she got to the emergency department, however ER documentation indicates that she was pain-free when she came to the ER. Patient did not require any repeat administration of any nitroglycerin. Patient has been undergoing outpatient management for difficulty breathing. She had finished a 10 day steroid dose pack and went back to her primary medical doctor's office yesterday and was placed on a Z-Edy. Review of Systems Respiratory: COMPLAINS OF: Shortness of breath Cardiovascular: COMPLAINS OF: Chest pain Except as stated in HPI: all other systems reviewed are Neg Past Family Social History Past Medical History Hypertension Hyperlipidemia History of brain aneurysm status post coiling History of CVA Obstructive sleep apnea History tobacco use, likely underlying COPD Anxiety, depression Gastroesophageal reflux Degenerative arthritis Past Surgical History Brain aneurysm coils Surgery for ruptured ovarian cyst Reported Medications Reported Meds & Active Scripts Active Ventolin Hfa 18 GM Inh (Albuterol Sulfate) 90 Mcg/Act Aer 2 Puff INH Q4-6H PRN Prednisone (21) 5 mg tab Dose Pack (Prednisone) 5 Mg Dspk 5 Mg PO DIRECTED Reported Nitroglycerin SL (Nitroglycerin) 0.4 Mg Subl 0.4 Mg SL DIRECTED PRN ONE TABLET UNDER THE TONGUE NEEDED FOR CHEST PAIN, MAY REPEAT EVERY FIVE MINUTES FOR A TOTAL OF 3 DOSES OR CALL 911 IF NO RELIEF Xanax (Alprazolam) 0.25 Mg Tab 0.25 Mg PO Q6H PRN Acetaminophen Pm Caplet (Acetaminophen/Diphenhydramine) 500 Mg-25 Mg Tablet Vitamin D3 (Cholecalciferol) 5,000 Unit Cap 5,000 Units PO DAILY Ecotrin Low Strength (Aspirin) 81 Mg Tabdr 81 Mg PO DAILY Atorvastatin (Atorvastatin Calcium) 80 Mg Tab 80 Mg PO HS Amlodipine (Amlodipine Besylate) 2.5 Mg Tab 2.5 Mg PO DAILY Pantoprazole (Pantoprazole Sodium) 40 Mg Tab 40 Mg PO DAILY Levocetirizine 5 Mg Tab 5 Mg PO DAILY Metoprolol Tartrate 50 Mg Tab 50 Mg PO BID Sertraline (Sertraline HCl) 100 Mg Tab 100 Mg PO DAILY Gabapentin 800 Mg Tab 800 Mg PO TID Clopidogrel (Clopidogrel Bisulfate) 75 Mg Tab 75 Mg PO DAILY Lisinopril 20 Mg Tab 20 Mg PO DAILY Hydrocodone-Acetaminophen 5-325 mg Tab 1 Tab PO Q6H PRN Allergies: Coded Allergies: diatrizoate meglumine (Unverified Allergy, Unknown, 12/08/16) gadobenic acid (Unverified Allergy, Unknown, 12/08/16) gadodiamide (Unverified Allergy, Unknown, 12/08/16) gadoteridol (Unverified Allergy, Unknown, 12/08/16) iodixanol (Unverified Allergy, Unknown, 12/08/16) iohexol (Unverified Allergy, Unknown, 12/08/16) Family History Reviewed and family history rather significant for Heart disease. Cancer: 2 brothers with throat cancer, grandfather with mouth cancer, mother with bladder cancer, father with leukemia Social History Patient quit smoking 10 years ago, prior to that she smoked up to 3 pack a cigarettes a day since she was 14 years old. Patient denies any alcohol or illicit drugs Physical Exam Vital Signs Vital Signs Date Time Temp Pulse Resp B/P (MAP) Pulse Ox O2 Delivery O2 Flow Rate FiO2 12/08/16 04:28 20 96 12/08/16 04:24 96 Nasal Cannula 2.00 12/08/16 02:30 100 12/08/16 02:30 98.2 103 15 122/96 (105) 96 Nasal Cannula 2.00 12/08/16 02:30 97.1 102 20 157/94 (115) 96 12/08/16 01:24 116 16 122/96 (105) 2 Nasal Cannula 12/08/16 00:10 18 96 Room Air 12/08/16 00:10 96 Nasal Cannula 2.00 12/07/16 23:56 98.5 108 17 143/93 (110) 94 Nasal Cannula 12/07/16 23:40 98.4 117 17 143/93 (110) 96 Physical Exam GENERAL: Well-developed, well-nourished, in no acute distress. alert and orientated HEENT: Head is normocephalic without any lesions or masses noted. Facial features are symmetric. Eyes: Pupils equal round reactive to light. Extraocular muscles are intact. Conjunctivae were clear. Oropharyngeal: Pharynx without any erythema edema. Tongue is midline without deviation. Buccal mucosa is moist without any masses or lesions NECK: Supple without any masses. Trachea midline no deviation. No JVD, no bruits are appreciated CARDIAC: Regular rhythm, regular rate. S1/S2 are heard. No murmurs gallops or rubs. LUNGS: Significant expiratory wheeze bilaterally. Can be heard without stethoscope, no rhonchi or rales. No use of accessory muscles on inspiration or expiration. ABDOMEN: Soft, nontender. Nondistended. Bowel sounds heard in all 4 quadrants. No organomegaly or masses. Negative rebound, negative guarding EXTREMITIES: No edema, pulses are equal bilaterally. No cyanosis or clubbing NEUROLOGY: Mood and affect appear appropriate. Cranial nerves II through XII grossly intact. Muscle strength 5/5 in upper and lower extremities bilaterally. Deep tendon reflexes are 2+ in upper and lower extremities bilaterally. Laboratory Laboratory Tests Test 12/08/16 00:00 12/08/16 03:10 12/08/16 06:30 White Blood Count 11.6 Red Blood Count 5.11 Hemoglobin 13.7 Hematocrit 43.7 Mean Corpuscular Volume 85.5 Mean Corpuscular Hemoglobin 26.7 Mean Corpuscular Hemoglobin Concent 31.2 Red Cell Distribution Width 13.6 Platelet Count 343 Mean Platelet Volume 8.4 Neutrophils (%) (Auto) 85.6 Lymphocytes (%) (Auto) 11.5 Monocytes (%) (Auto) 2.1 Eosinophils (%) (Auto) 0.0 Basophils (%) (Auto) 0.8 Neutrophils # (Auto) 10.0 Lymphocytes # (Auto) 1.3 Monocytes # (Auto) 0.2 Eosinophils # (Auto) 0.0 Basophils # (Auto) 0.1 CBC Comment DIFF FINAL Differential Comment Prothrombin Time 10.7 Prothromb Time International Ratio 1.0 Activated Partial Thromboplast Time 24.7 Blood Urea Nitrogen 19 16 Creatinine 1.10 0.84 Random Glucose 163 135 Total Protein 7.2 Albumin 3.5 Calcium Level 9.4 9.3 Magnesium Level 1.7 Alkaline Phosphatase 69 Aspartate Amino Transf (AST/SGOT) 12 Alanine Aminotransferase (ALT/SGPT) 15 Total Bilirubin 0.2 Sodium Level 135 138 Potassium Level 3.7 4.2 Chloride Level 102 105 Carbon Dioxide Level 22.8 25.8 Anion Gap 10 7 Estimat Glomerular Filtration Rate 50 69 Total Creatine Kinase 52 69 42 Troponin I LESS THAN 0.02 0.03 0.02 B-Type Natriuretic Peptide 53 Lipase 92 Result Diagram: 12/08/16 0000 12/08/16 0630 Imaging Last Impressions Chest X-Ray 12/07/16 9913 Signed Impressions: Service Date/Time: Thursday, December 08, 2016 00:06 - CONCLUSION: No evidence of acute cardiopulmonary disease. MD Fani Maddox VTE Risk Assessment Caprini VTE Risk Assessment: Mod/High Risk (score >= 2) Caprini Risk Assessment Model Point Value = 1 Point Value = 2 Point Value = 3 Point Value = 5 Age 41-60 Minor surgery BMI > 25 kg/m2 Swollen legs Varicose veins or History of unexplained or recurrent spontaneous Oral contraceptives or hormone replacement Sepsis (< 1 month) Serious lung disease, including pneumonia (< 1 month) Abnormal pulmonary function Acute myocardial infarction Congestive heart failure (< 1 month) History of inflammatory bowel disease Medical patient at bed rest Age 61-74 Arthroscopic surgery Major open surgery (> 45 min) Laparoscopic surgery (> 45 min) Malignancy Confined to bed (> 72 hours) Immobilizing plaster cast Central venous access Age >= 75 History of VTE Family history of VTE Factor V Leiden Prothrombin [id number] Lupus anticoagulant Anticardiolipin antibodies Elevated serum homocysteine Heparin-induced thrombocytopenia Other congenital or acquired thrombophilia Stroke (< 1 month) Elective arthroplasty Hip, pelvis, or leg fracture Acute spinal cord injury (< 1 month) Prophylaxis Regimen Total Risk Factor Score Risk Level Prophylaxis Regimen 0-1 Low Early ambulation 2 Moderate Order ONE of the following: *Sequential Compression Device (SCD) *Heparin 5000 units SQ BID 3-4 Higher Order ONE of the following medications: *Heparin 5000 units SQ TID *Enoxaparin/Lovenox 40 mg SQ daily (WT < 150 kg, CrCl > 30 mL/min) *Enoxaparin/Lovenox 30 mg SQ daily (WT < 150 kg, CrCl > 10-29 mL/min) *Enoxaparin/Lovenox 30 mg SQ BID (WT < 150 kg, CrCl > 30 mL/min) AND/OR *Sequential Compression Device (SCD) 5 or more Highest Order ONE of the following medications: *Heparin 5000 units SQ TID (Preferred with Epidurals) *Enoxaparin/Lovenox 40 mg SQ daily (WT < 150 kg, CrCl > 30 mL/min) *Enoxaparin/Lovenox 30 mg SQ daily (WT < 150 kg, CrCl > 10-29 mL/min) *Enoxaparin/Lovenox 30 mg SQ BID (WT < 150 kg, CrCl > 30 mL/min) AND *Sequential Compression Device (SCD) Assessment and Plan Assessment and Plan Chest pain, typical -Patient has have increased risk factors to include hypertension, hyponatremia, history myocardial infarction, history tobacco use, family history of heart disease, age -Patient has been ruled out for acute coronary event with serial cardiac enzymes are negative, serial EKGs show sinus rhythm with left bundle branch block. Does not appear to be any changes when compared to March 2016 -We'll pursue chemical stress test rule out any underlying ischemia. Negative for acute ischemia. -Continue aspirin, nitroglycerin as needed Bronchospasm, likely chronic obstructive pulmonary disease -If cardiac etiology is ruled out, likely patient's present symptoms could be related to bronchospasm/chronic obstructive pulmonary disease -Continue Zithromax -We will start tapering steroids -Continue nebulizer treatments -Patient will require formal pulmonology evaluation upon discharge. She will follow with her PCP. Hypertension, hyperlipidemia -Continue home medications History of CVA -Continue anticoagulation with aspirin and Plavix Hyperglycemia -Likely secondary to recent steroid use -Obtain hemoglobin A1c DVT prevention -Sequential compression devices Discharge disposition Discharge home in stable condition if stress test is negative Activity: Ad el. Diet: Healthy heart diet Medications per medication reconciliation Follow-up primary medical doctor in one week, patient will require outpatient pulmonology evaluation Discussed Condition With This note was transcribed by adonay Hudson. I, Dr. Miguel Zaidi personally performed the history, physical exam, and medical decision making; and confirmed the accuracy of the information in the transcribed note. Authenticated by Dr. Miguel Zaidi on 12/08/16 at 13:13. Problem Qualifiers (1) Chest pain: Qualified Codes: R07.9 - Chest pain, unspecified John Hudson Dec 08, 2016 09:20 Miguel Zaidi DO Dec 08, 2016 13:13
[2016-12-08 12:00] VITALS: BP 138/77; PULSE 80; RESP 18; TEMP 97.4; O2SAT 94
[2016-12-08] MEDS ORDERED: [UNRECOGNIZED DRUG - REMARK] NEB PRN (12:00)
--- NOTE | 2016-12-08 12:07 | RADRPT ---
EXAM DATE/TIME: 12/08/2016 10:30 [place] COMPARISON: No previous studies available for comparison. INDICATIONS : Chest pain. Angina. DOSE: 26.3 mCi Tc99m Myoview at stress. 8.6 mCi Tc99m Myoview at rest. 0.4 mg Lexiscan STRESS SYMPTOMS: Dyspnea, nausea, headache and chest pressure. EJECTION FRACTION: > 70% MEDICAL HISTORY : Myocardial infarction. Hypercholesterolemia. Hypertension. Stroke. SURGICAL HISTORY : Brain coil. ENCOUNTER: Initial ACUITY: 1 day PAIN SCALE: 8/10 LOCATION: Chest TECHNIQUE: The patient underwent pharmacologic stress with infusion of prescribed dose. Continuous ECG tracing was monitored during stress. Gated SPECT imaging was performed after stress and conventional SPECT i maging was performed at rest. The examination was performed on a SPECT/CT scanner, both attenuation and non-corrected datasets were reviewed. FINDINGS: The gated cine loop images demonstrate no focal wall motion abnormality. Left ventricular ejection f raction is calculated at greater than 70%. The cardiac SPECT stress and rest images demonstrate fixed defects involving the cardiac apex suggest ing LAD infarct. No reversible defect is noted to suggest ischemia. CONCLUSION: 1. Fixed defect involving the cardiac apex suggesting LAD infarct. Clinical correlation is recommen ded. 2. No reversible defect to suggest ischemia. 3. No focal wall motion abnormality. Left ventricular ejection fraction is calculated at greater th an 70%. RISK CATEGORY: Low risk (less than 1% annual mortality rate). Clinton Dominguez MD on December 08, 2016 at 12:01 Board Certified Radiologist. This report was verified electronically.
[2016-12-08] MEDS ORDERED: ZITH250T PO (12:12)
[2016-12-08] MEDS ORDERED: MEDR4PAK PO (12:12)
--- NOTE | 2016-12-08 12:12 | HHI.DCPOC ---
Discharge Care Plan Diagnosis: (1) Chest pain Goals to Promote Your Health * To prevent worsening of your condition and complications * To maintain your health at the optimal level Directions to Meet Your Goals Take your medications as prescribed Follow your dietary instruction Follow activity as directed Keep your appointments as scheduled Take your immunizations and boosters as scheduled If your symptoms worsen call your PCP, if no PCP go to Urgent Care Center or Emergency Room Smoking is Dangerous to Your Health. Avoid second hand smoke Call the 24-hour hour crisis hotline for domestic abuse at [facility] Dec 08, 2016 12:12
--- NOTE | 2016-12-08 12:12 | HHI.DCPOC ---
Discharge Care Plan Diagnosis: (1) Chest pain Goals to Promote Your Health * To prevent worsening of your condition and complications * To maintain your health at the optimal level Directions to Meet Your Goals Take your medications as prescribed Follow your dietary instruction Follow activity as directed Keep your appointments as scheduled Take your immunizations and boosters as scheduled If your symptoms worsen call your PCP, if no PCP go to Urgent Care Center or Emergency Room Smoking is Dangerous to Your Health. Avoid second hand smoke Call the 24-hour hour crisis hotline for domestic abuse at [facility] Dec 08, 2016 12:12
--- NOTE | 2016-12-08 12:12 | HHI.DCPOC ---
Discharge Care Plan Diagnosis: (1) Chest pain Goals to Promote Your Health * To prevent worsening of your condition and complications * To maintain your health at the optimal level Directions to Meet Your Goals Take your medications as prescribed Follow your dietary instruction Follow activity as directed Keep your appointments as scheduled Take your immunizations and boosters as scheduled If your symptoms worsen call your PCP, if no PCP go to Urgent Care Center or Emergency Room Smoking is Dangerous to Your Health. Avoid second hand smoke Call the 24-hour hour crisis hotline for domestic abuse at [facility] Dec 08, 2016 12:12
--- NOTE | 2016-12-08 12:50 | EKG ---
Date Performed: 12/08/2016 Time Performed: 05:45:13 PTAGE: 60 years EKG: Sinus rhythm LEFT BUNDLE BRANCH BLOCK ABNORMAL ECG NO SIG CHANGE PREVIOUS TRACING : 12/08/2016 03.27 DOCTOR: Jourdan Dyer Interpretating Date/Time 12/08/2016 12:49:37
--- NOTE | 2016-12-08 12:51 | EKG ---
Date Performed: 12/08/2016 Time Performed: 01:13:24 PTAGE: 60 years EKG: SINUS TACHYCARDIA LEFT BUNDLE BRANCH BLOCK ABNORMAL ECG NO CHANGE PREVIOUS TRACING : 12/07/2016 23.39 DOCTOR: Jourdan Dyer Interpretating Date/Time 12/08/2016 12:50:18
--- NOTE | 2016-12-08 12:51 | EKG ---
Date Performed: 12/08/2016 Time Performed: 03:27:33 PTAGE: 60 years EKG: Sinus rhythm LEFT BUNDLE BRANCH BLOCK ABNORMAL ECG NO SIG CHANGE PREVIOUS TRACING : 12/08/2016 01.13 DOCTOR: Jourdan Dyer Interpretating Date/Time 12/08/2016 12:49:54
--- NOTE | 2016-12-08 12:51 | EKG ---
Date Performed: 12/07/2016 Time Performed: 23:39:52 PTAGE: 60 years EKG: SINUS TACHYCARDIA LEFT VENTRICULAR HYPERTROPHY AND ST-T CHANGE ABNORMAL ECG NO CHANGE PREVIOUS TRACING : 03/14/2016 08.31 DOCTOR: Jourdan Dyer Interpretating Date/Time 12/08/2016 12:50:34
[2016-12-08] MEDS ORDERED: [UNRECOGNIZED DRUG - REMARK] NEB SCH (14:00)
--- NOTE | 2016-12-08 15:33 | TR ---
Date Performed: 12/08/2016 Time Performed: 10:58:39 DOCTOR: Jourdan Dyer DRUG LIST: CLINICAL HISTORY: REASON FOR TEST: Chest pain REASON FOR ENDING: OBSERVATION: CONCLUSION: Lexiscan stress test was performed under standard four minute protocol. Radionuclide was injected one minute prior to ending the test. No electrocardiographic abormalities were present to suggest ischemia. Nuclear imaging and interpretation are pending. COMMENTS:
[2016-12-08] MEDS ORDERED: ATORVASTATIN 40 MG TAB PO SCH (21:00)
[2016-12-08] MEDS ORDERED: ATORVASTATIN 80 MG TAB PO SCH (21:00)
[2016-12-09 09:42] LABS: HEMOGLOBIN A1C 6.4 % (4.3-6.0)
== END 2016-12-08 14:32 | disposition home or self-care (01) ==
LOC: PHED 23:34 → PHEDA 12-08 01:08 → PH3B 12-08 02:35
PROVIDERS: ADMIT Hospitalist; ATTEND Hospitalist
DX: R07.89 Other chest pain (principal); R73.9 Hyperglycemia, unspecified; I10 Essential (primary) hypertension; E87.1 Hypo-osmolality and hyponatremia; E78.5 Hyperlipidemia, unspecified; J44.9 Chronic obstructive pulmonary disease, unspecified; G47.33 Obstructive sleep apnea (adult) (pediatric); J98.01 Acute bronchospasm; K21.9 Gastro-esophageal reflux disease without esophagitis; R94.31 Abnormal electrocardiogram [ECG] [EKG]; I25.2 Old myocardial infarction; Z79.01 Long term (current) use of anticoagulants; Z82.49 Family history of ischemic heart disease and other diseases of the circulatory system; Z85.828 Personal history of other malignant neoplasm of skin; Z86.73 Personal history of transient ischemic attack (TIA), and cerebral infarction without residual deficits; Z87.891 Personal history of nicotine dependence; Z79.82 Long term (current) use of aspirin
CPT/HCPCS: 71010; 78452; 80053; 82550; 83036; 83690; 83735; 83880; 84484; 85025; 85610; 85730; 93005; 93017; 94640; 94664; 99285; A9502; G0378; J2060; J2785; J7040; J7644; 80048